=== PATIENT | male | born 1995 | race Hispanic/Latino ===

== ENCOUNTER 2017-08-05 02:14 | Emergency (ER) | payer BC ==
[2017-08-05] MEDS ORDERED: Lidocaine 1% w Epi 1:100,000 Inj ONE (02:51)
[2017-08-05 03:46] VITALS: BP 116/68; PULSE 88; RESP 18; TEMP 98.4; O2SAT 99
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
== END 2017-08-05 03:44 | disposition home or self-care (01) ==
LOC: H.ER 02:14
DX: S01.81XA Laceration without foreign body of other part of head, initial encounter (principal); S01.511A Laceration without foreign body of lip, initial encounter; Y04.0XXA Assault by unarmed brawl or fight, initial encounter; Y92.89 Other specified places as the place of occurrence of the external cause